=== PATIENT | female | born 1970 ===

== ENCOUNTER 2023-07-15 15:08 | Emergency (ER) | payer OTHER, SELFPAY ==
--- NOTE | ~2023-07-15 | XR_ITS ---
EXAMINATION: XR HIP, RIGHT CLINICAL INFORMATION: Right hip and pelvis pain COMPARISON: None available. TECHNIQUE: Two views of the right hip. FINDINGS: No fracture. Alignment is anatomic. Hip joint space is maintained. Soft tissues are unremarkable. XR/XR hip RT w PEL1V IMPRESSION: Normal right hip.
--- NOTE | ~2023-07-15 | XR_ITS ---
Examination: Lumbar spine, sacrum and coccyx, thoracic spine. Clinical information pain COMPARISON: None TECHNIQUE: 3 views of the sacrococcygeal region, 2 views of thoracic spine, and 3 views of the lumbar spine. FINDINGS: THORACIC SPINE: 2 views of the thoracic spine reveals no evidence of fracture. Osseous structures unremarkable. Soft tissues are normal. LUMBAR SPINE: 3 views of lumbar spine revealed status post L4-L5 effusion with posterior and vertical rods and status post laminectomy. There are no new fractures identified. Vertebral bodies are well aligned. There is almost complete fusion between L4 and L5. There is subchondral sclerosis at the level of L5-S1 and facets. SACRUM AND COCCYX: There is no evidence of fracture seen. Sacroiliac joints are unremarkable. Pelvic bones are normal. XR/XR thoracic spine 3V IMPRESSION: Postsurgical changes at the level of L4-L5 with fusion of L4-L5 and subchondral sclerosis at the level of L5-S1.
--- NOTE | ~2023-07-15 | XR_ITS ---
Examination: Lumbar spine, sacrum and coccyx, thoracic spine. Clinical information pain COMPARISON: None TECHNIQUE: 3 views of the sacrococcygeal region, 2 views of thoracic spine, and 3 views of the lumbar spine. FINDINGS: THORACIC SPINE: 2 views of the thoracic spine reveals no evidence of fracture. Osseous structures unremarkable. Soft tissues are normal. LUMBAR SPINE: 3 views of lumbar spine revealed status post L4-L5 effusion with posterior and vertical rods and status post laminectomy. There are no new fractures identified. Vertebral bodies are well aligned. There is almost complete fusion between L4 and L5. There is subchondral sclerosis at the level of L5-S1 and facets. SACRUM AND COCCYX: There is no evidence of fracture seen. Sacroiliac joints are unremarkable. Pelvic bones are normal. XR/XR sacrum coccyx min 2V IMPRESSION: Postsurgical changes at the level of L4-L5 with fusion of L4-L5 and subchondral sclerosis at the level of L5-S1.
--- NOTE | ~2023-07-15 | XR_ITS ---
Examination: Lumbar spine, sacrum and coccyx, thoracic spine. Clinical information pain COMPARISON: None TECHNIQUE: 3 views of the sacrococcygeal region, 2 views of thoracic spine, and 3 views of the lumbar spine. FINDINGS: THORACIC SPINE: 2 views of the thoracic spine reveals no evidence of fracture. Osseous structures unremarkable. Soft tissues are normal. LUMBAR SPINE: 3 views of lumbar spine revealed status post L4-L5 effusion with posterior and vertical rods and status post laminectomy. There are no new fractures identified. Vertebral bodies are well aligned. There is almost complete fusion between L4 and L5. There is subchondral sclerosis at the level of L5-S1 and facets. SACRUM AND COCCYX: There is no evidence of fracture seen. Sacroiliac joints are unremarkable. Pelvic bones are normal. XR/XR lumbar spine 2-3V IMPRESSION: Postsurgical changes at the level of L4-L5 with fusion of L4-L5 and subchondral sclerosis at the level of L5-S1.
[2023-07-15 15:20] VITALS: BP 104/51; PULSE 67; RESP 18; TEMP 37.2; O2SAT 98; BMI 24.3
--- NOTE | 2023-07-15 15:23 | ED_ITS ---
HPI - General Adult General Chief complaint: Fall Stated complaint: fall / side pain Time Seen by Provider: 07/15/23 17:07 Source: patient Mode of arrival: ambulatory Limitations: no limitations History of Present Illness HPI narrative: 53-year-old female with a history of chronic pain syndrome on chronic opiates, multiple back and neck surgeries in the past who presents to the ER for evaluation of middle and lower back pain, right hip pain after she lost her footing while walking down the stairs and fell on her bottom down 3 steps earlier today. She did not hit her head or lose consciousness. She states she has had pain in the right hip, buttocks and back since then. She is able to walk but it hurts her right hip and back. She states she has been suffering from shooting pains down the right leg for a long time now. She follows with Pain Management in her neurosurgeon. She has had several injections and nerve blocks with no improvement. She is on Dilaudid chronically. She denies any chest pain or shortness of breath. No abdominal pain. No neck pain or headache. MD complaint: Back pain and right hip pain status post fall Onset (ago): hour(s) Location: back and pelvis Radiation: distal Severity: moderate Quality: stabbing and aching Pain Consistency: constant Relieving factors: rest Exacerbating factors: movement Associated symptoms: denies other symptoms Treatments prior to arrival: none Related Data Previous Rx's Medication Instructions Recorded tizanidine 4 mg capsule 4 mg PO Q8H PRN muscle spasticity 07/15/23 #14 caps Allergies Allergy/AdvReac Type Severity Reaction Status Date / Time carbamazepine [From Tegretol] Allergy Severe ANAPHYLAXIS Unverified 07/31/20 15:09 Penicillins Allergy Severe THROAT Unverified 07/31/20 15:09 SWELLING, HIVES trazodone [Trazodone] Allergy Severe HALLUCINATI Unverified 07/31/20 15:09 ONS gabapentin [From Neurontin] Allergy Intermediate WEAKNESS Unverified 07/31/20 15:09 codeine [Codeine] Allergy Mild NAUSEA/VOMI Unverified 07/31/20 15:09 TING dichloralphenazone Allergy Mild HIVES Unverified 07/31/20 15:09 [From MIDRIN] latex [Latex] Allergy Mild RASH Unverified 07/31/20 15:09 topiramate [Topiramate] Allergy Mild HIVES Unverified 07/31/20 15:09 bee pollen [Bee Stings] Allergy Unknown ANAPHYLAXIS Unverified 07/31/20 15:09 divalproex sodium Allergy Unknown UNKNOWN Unverified 07/31/20 15:09 [From DEPAKOTE] etodolac Allergy Unknown HIVES Unverified 07/31/20 15:09 ketorolac [From TORADOL] Allergy Unknown NAUSEA Unverified 07/31/20 15:09 From Dilantin Allergy Intermediate HIVES, RASH Uncoded 07/31/20 15:09 From MIDRIN Allergy Mild HIVES Uncoded 07/31/20 15:09 Review of Systems Review of Systems: Yes all other systems are reviewed and are negative [facility] Social History Social History Advance Directives: No Advance Directives Information Provided: Yes Physical Exam ED Vital Signs: Vital Signs - 24 hr 07/15/23 15:20 07/15/23 17:20 Temperature 99.0 F Pulse Rate 67 61 Respiratory Rate 18 Blood Pressure 104/51 L 126/66 Pulse Oximetry 98 99 Oxygen Delivery Method Room Air Room Air BMI result Body Mass Index 24.3 Appearance: Alert. Oriented X3. No acute distress. Head: normocephalic, atraumatic. Eyes: Pupils equal, round and reactive to light. ENT: Pharynx normal. No tonsillar swelling or exudate. Neck: Normal inspection. Neck supple. CVS: Normal heart rate and rhythm. Pulses normal. Respiratory: No respiratory distress. Breath sounds normal. Abdomen: Soft and nontender. +BS x4 Back: tenderness of the thoracic and lumbar spine throughout with associated soft tissue tenderness of the paraspinous muscles. Skin: Skin warm and dry. Normal skin color. Normal skin turgor. No rashes. Extremities: pelvis is stable. right lateral hip tenderness. no deformity. pain with flexion and full extension of the hip. No lower extremity edema. No joint swelling. Neuro/psych: Oriented X 3. No motor deficit. No sensory deficit. CN II-XII intact. Normal speech and cognition. ambulatory Course Course Course Narrative: This is an RME: Additional HPI, ROS, PE not included below will be deferred to primary provider. This is a 53-year-old female presenting to the emergency department for evaluation of back and right hip pain status post mechanical fall which occurred today. Patient reports that she fell down 3 this afternoon. She has been able to ambulate however reports significant pain. She has a history of back problems reports that she has had multiple surgeries on her back. She currently sees pain management for her back which she gets pain injections for, next appointment is in 2 weeks. Patient has tenderness palpation along the T-spine, L-spine, sacrum and coccyx, and right hip. No LOC, hitting head. Plan: X-rays Medications Administered Discontinued Medications Generic Name Dose Route Start Last Admin Trade Name Freq PRN Reason Stop Dose Admin Hydromorphone HCl 1 mg 07/15/23 18:11 07/15/23 18:24 Hydromorphone Hcl 1 Mg/Ml Syringe IM 07/15/23 18:12 1 mg ONCE ONE Administration Protocol Medical Decision Making Medical Decision Making [facility] Narrative: 53-year-old female presents to the ER for evaluation of back pain and right hip pain after she fell down 3 stairs earlier today. No head strike or loss of consciousness. No headache or neck pain. She had tenderness along her thoracic and lumbar spine so x-rays were performed. No acute compression fractures or spinal fractures were observed. No other signs of trauma on exam. No chest pain or abdominal pain. She is ambulatory. At this time she is stable for discharge home with treatment for contusion, muscle strain and spasm. She is on Dilaudid and gets refills on Tuesday. 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 Differential Diagnosis Differential Diagnoses: The differential diagnosis associated with the presentation includes Compression fracture of the spine, contusion of the back, muscle strain and spasm, hip fracture, coccyx fracture, pelvic fracture Independent Interpretation I performed an independent interpretation of an: Plain X-Ray Interpretation: x-rays reviewed, no acute fracture appreciated, agrees radiologist read Radiology Impression Discussion of test interpretation with radiology: I have reviewed the radiologist's reading. Radiologist Impression: XR/XR hip RT w PEL1V IMPRESSION: Normal right hip. ?XR/XR lumbar spine 2-3V IMPRESSION: Postsurgical changes at the level of L4-L5 with fusion of L4-L5 and subchondral sclerosis at the level of L5-S1. ?XR/XR sacrum coccyx min 2V IMPRESSION: Postsurgical changes at the level of L4-L5 with fusion of L4-L5 and subchondral sclerosis at the level of L5-S1. ?XR/XR sacrum coccyx min 2V IMPRESSION: Postsurgical changes at the level of L4-L5 with fusion of L4-L5 and subchondral sclerosis at the level of L5-S1. Independent Historian Clinical information obtained from an independent historian. History obtained from or confirmed by: Friend External Record Review External record reviewed: Outpatient record Tests considered The following testing was considered but not selected: CT scan of the spine and pelvis was considered Prescription Management I considered prescription management with: Pain Medication Chronic Conditions Patient?s care impacted by: Other (chronic pain) Critical Care Time Critical Care Time Critical Care Time: No Discharge Plan Discharge Clinical Impression: Contusion of back Patient Disposition: Home, Self-Care Instructions: Contusion in Adults (ED) Additional Instructions: Your x-rays showed no broken bones. Your pain is most likely due to muscle strain and spasm along with contusion. No bending, lifting or twisting. Use ice several times per day for 20 minutes at a time for the next 48 hours and then change to heat. Take medication as prescribed to help with pain and discomfort. Follow up with your Primary Care Doctor, Pain Management provider and Neurosurgeon. Prescriptions: New tizanidine 4 mg capsule 4 mg PO Q8H PRN (Reason: muscle spasticity) Qty: 14 0RF
[2023-07-15 17:20] VITALS: BP 126/66; PULSE 61; O2SAT 99
[2023-07-15] MEDS: HYDROmorphone HCl 1 MG/ML SYRINGE IM (18:24)
== END 2023-07-15 18:53 | disposition home or self-care (01) ==
PROVIDERS: Emergency Provider Emergency Medicine
DX: S39.012A Strain of muscle, fascia and tendon of lower back, initial encounter (principal); M54.2 Cervicalgia; R51.9 Headache, unspecified; M25.551 Pain in right hip; R10.2 Pelvic and perineal pain; M54.6 Pain in thoracic spine; M53.3 Sacrococcygeal disorders, not elsewhere classified; W01.10XA Fall on same level from slipping, tripping and stumbling with subsequent striking against unspecified object, initial encounter; Y93.9 Activity, unspecified; Y92.9 Unspecified place or not applicable; Y99.9 Unspecified external cause status; Z79.899 Other long term (current) drug therapy
CPT/HCPCS: 72072; 72100; 72220; 73502; 96372; 99283; 99284; J1170

== ENCOUNTER 2023-08-06 15:10 | Emergency (ER) | payer OTHER, SELFPAY ==
--- NOTE | ~2023-08-06 | CT_ITS ---
EXAMINATION: CT HEAD WITHOUT CONTRAST CLINICAL INFORMATION: Sudden onset headache. History of previously treated arteriovenous malformation. COMPARISON: CTA head and neck from 04/25/2015. TECHNIQUE: Contiguous axial imaging was performed from the skull base to vertex without intravenous administration of contrast. This CT examination was performed using dose optimization techniques as appropriate, variously including the following: *Automated exposure control. *Adjustment of mA and/or kV according to patient size (this includes techniques or standardized protocols for targeted exams where dose is matched to indication/reason for exam; i.e. extremities or head). *Use of iterative reconstruction technique. DLP: 2020 mGy-cm FINDINGS: Right frontal approach ventriculoperitoneal shunt catheter in place. The tip the remaining in the anterior aspect of the third ventricle. The ventricles are moderately expanded compared to exam from 2015. The third ventricle now measures up to 1.1 cm in diameter (previously 0.5 cm). The septum pellucidum is chronically positioned approximately 0.4 cm to the right of midline. Mild white matter hypoattenuation surrounding the catheter in the anterior right frontal lobe. Changes of prior left pterional craniotomy. Surgical aneurysm clip in the suprasellar cistern. Coil embolization material is noted along the M1 segment of the left MCA at the site of previously demonstrated aneurysm. Radiodense embolization material is noted in multiple irregular vessels along the lateral left frontal lobe at the site of previously demonstrated arterial venous malformation. There is no demonstrated evidence of acute intracranial hemorrhage or edematous territorial infarction. No new loss of hillman-white matter differentiation. No additional parenchymal attenuation abnormalities. No demonstrated extra-axial fluid collection. No acute soft tissue or osseous abnormalities. Chronic gale hole in the posterior aspect of the right parietal bone. The mastoid air cells and visualized paranasal sinuses are clear. CT/CT head/brain wo IV con IMPRESSION: 1. No evidence of acute intracranial hemorrhage or edematous territorial infarction. 2. Right frontal approach ventriculoperitoneal shunt catheter in place. The ventricles are moderately expanded compared to exam from 2015. 3. Changes of prior left pterional craniotomy and coil embolization of a left MCA aneurysm.
[2023-08-06 15:23] VITALS: BP 111/53; BP 132/68; PULSE 64; PULSE 71; TEMP 36.9; O2SAT 98; BMI 29.0
--- NOTE | 2023-08-06 16:24 | PC.NURSE ---
pt reports 10/10 headache that began 30 mins prior to arriving to the er. she states that she has chronic migraines and takes meds for it. she also has hx of seizure, last seizure was a month ago. pt compliant with meds. a+o, vss. denies blurry vision, dizziness, numbness, tingling. no other complaints.
[2023-08-06 16:32] LABS: MANUAL DIFF FLAG NO
[2023-08-06 16:33] LABS: Basophils Percent Auto 0.5 % (0-2); Eosinophils Absolute Auto 0.1 X10*3/uL (0.0-0.4); Eosinophils Percent Auto 1.9 % (0-4); Hematocrit 37.3 % (37.0-47.0); Hemoglobin 12.3 g/dl (12.0-16.0); Imm Gran Abs Auto 0.06 X10*3/uL (0.00-0.03); Lymphocytes Absolute Auto 2.2 X10*3/uL (1.2-4.9); Lymphocytes Percent Auto 34.7 % (20-40); Mean Corpuscular Hemoglobin 28.9 pg (27.0-33.0); Mean Corpuscular Volume 87.6 fL (80.0-98.0); Mean Platelet Volume 8.1 fL (9.4-12.3); Monocytes Absolute Auto 0.5 X10*3/uL (0.1-1.2); Monocytes Percent Auto 8.6 % (2-11); Neutrophils Absolute Auto 3.3 x10*3/uL (2.0-8.3); Neutrophils Percent Auto 53.3 % (45-73); Platelet Count 192 X10*3/uL (160-400); Red Blood Count 4.26 X10*6/uL (4.20-5.50); Red Cell Distribution Width 12.6 % (11.0-16.0); White Blood Count 6.3 X10*3/uL (4.8-10.8)
[2023-08-06 16:48] LABS: COVID-19 Test Negative (Negative); IDNOW Serial# 08D9AD1C
[2023-08-06 16:54] LABS: Alanine Aminotransferase 9 U/L (0-31); Albumin Level 4.2 g/dL (3.5-5.0); Alkaline Phosphatase 111 U/L (39-117); Anion Gap 13 (12-20); Aspartate Amino Transferase 11 U/L (5-31); Bilirubin Total 0.2 mg/dL (0.0-1.0); Blood Urea Nitrogen 23 mg/dL (9-16); Calcium 9.3 mg/dL (8.4-10.2); Carbon Dioxide 19 mmol/L (22-29); Chloride 116 mmol/L (96-108); Creatinine Clr Calc Pharmacy 63.7; Estimated Glomerular Filt Rate 49; Glucose Random 80 mg/dL (60-115); Potassium 3.9 mmol/L (3.3-5.1); Sodium 144 mmol/L (135-145); Total Protein 7.5 g/dL (6.5-8.0)
[2023-08-06 17:05] LABS: Appearance Urine Clear; Color Urine Yellow; Glucose Urine UA Negative (Negative); Leukocyte Esterase Urine Trace (Negative); Nitrite Urine Negative (Negative); UMIC TRIGGER UACC YES; Urine Blood Negative (Negative); Urine Ketones Negative (Negative); Urine Protein Negative (Neg-Trace)
[2023-08-06 17:10] LABS: Bacteria Urine None Seen (None Seen); Hyaline Casts Urine 0-2 /LPF (0-2); RBC Urine 0-2 /HPF (0-2); Squamous Epithelial Cell Urine 0-2 /HPF (0-2); WBC Urine 0-5 /HPF (0-5)
--- NOTE | 2023-08-06 18:47 | ED.GENADULT ---
HPI - General Adult General Chief complaint: Headache Stated complaint: hist of seizure, headache, per ems Time Seen by Provider: 08/06/23 18:04 Source: patient, RN notes reviewed and old records reviewed Mode of arrival: ambulatory Limitations: no limitations History of Present Illness HPI narrative: 53-year-old female presents for evaluation of a headache. Patient reports that she suffers from frequent headaches. She has a history of cerebral aneurysm requiring coiling in 2004, AVM She reports that she developed a severe frontal headache that radiates around both sides of her head about 30 minutes prior to arrival She reports that 3 days ago she received ?anesthetic injections for a nerve block and my neck to try and prevent headaches. ? Though the patient has frequent headaches she states that this headache came on more suddenly than her usual headaches Denies any visual changes, dizziness, weakness Related Data Previous Rx's Medication Instructions Recorded tizanidine 4 mg capsule 4 mg PO Q8H PRN muscle spasticity 07/15/23 #14 caps Allergies Allergy/AdvReac Type Severity Reaction Status Date / Time carbamazepine [From Tegretol] Allergy Severe ANAPHYLAXIS Verified 08/06/23 15:34 Penicillins Allergy Severe THROAT Verified 08/06/23 15:34 SWELLING, HIVES trazodone [Trazodone] Allergy Severe HALLUCINATI Verified 08/06/23 15:34 ONS gabapentin [From Neurontin] Allergy Intermediate WEAKNESS Verified 08/06/23 15:34 codeine [Codeine] Allergy Mild NAUSEA/VOMI Verified 08/06/23 15:34 TING dichloralphenazone Allergy Mild HIVES Verified 08/06/23 15:34 [From MIDRIN] latex [Latex] Allergy Mild RASH Verified 08/06/23 15:34 topiramate [Topiramate] Allergy Mild HIVES Verified 08/06/23 15:34 bee pollen [Bee Stings] Allergy Unknown ANAPHYLAXIS Verified 08/06/23 15:34 divalproex sodium Allergy Unknown UNKNOWN Verified 08/06/23 15:34 [From DEPAKOTE] etodolac Allergy Unknown HIVES Verified 08/06/23 15:34 ketorolac [From TORADOL] Allergy Unknown NAUSEA Verified 08/06/23 15:34 From Dilantin Allergy Intermediate HIVES, RASH Uncoded 07/31/20 15:09 From MIDRIN Allergy Mild HIVES Uncoded 07/31/20 15:09 Review of Systems Constitutional: Constitutional: Denies chills, Denies fever(s) and Reports headache(s) Eyes: Eyes: Denies blurry vision and Denies exophthalmos ENT: Reports headache(s) Cardiovascular: Cardiovascular: Denies chest pain and Denies dyspnea Respiratory: Respiratory: Denies dyspnea Gastrointestinal: Gastrointestinal: Denies abdominal pain, Denies nausea and Denies vomiting Musculoskeletal: Musculoskeletal: Denies back pain Neurologic: Reports headache(s) PMFSH Social History Social History Advance Directives: No Advance Directives Information Provided: No Patient : No Physical Exam ED Vital Signs: Vital Signs - 24 hr 08/06/23 15:23 08/06/23 19:58 Temperature 98.5 F 98.3 F Pulse Rate 64 63 Respiratory Rate 18 Blood Pressure 111/53 L 115/64 Pulse Oximetry 98 98 Oxygen Delivery Method Room Air Room Air BMI result Body Mass Index 29.0 Const General: healthy appearing, comfortable, no acute distress, alert and awake Nutritional Appearance: well nourished Orientation/consciousness: patient oriented x3 HENMT Head: Yes normocephalic and Yes atraumatic Eyes Eyelids: Yes eyelids normal Conjunctivae: conjunctivae normal Sclerae: sclerae normal Corneas: corneas normal Pupils: Equal, round and reactive pupils present EOM: EOMs intact bilaterally Neck Neck: Yes full ROM Resp Effort & Inspection: normal respiratory effort, able to speak in complete sentences and not labored Cardio Rate: regular rate Rhythm: regular rhythm GI Inspection: No distended Palpation (GI): Soft to palpation, not firm, nontender, no guarding and not rigid Auscultation: normoactive bowel sounds Skin General skin exam: elasticity normal Neuro General: patient oriented x3 Cranial nerves: Yes CN's II-XII intact bilaterally, Yes Equal, round and reactive pupils present and Yes Bilaterally intact EOM present Cognition (Neuro): normal cognition Extrem Other: Moving all extremities well without any obvious deformities Course Reevaluation(s) Reevaluation #1: Patient's symptoms have resolved, she is to the for discharge at this time Time: 20:43 Medications Administered Discontinued Medications Generic Name Dose Route Start Last Admin Trade Name Freq PRN Reason Stop Dose Admin Diphenhydramine HCl 25 mg 08/06/23 18:14 08/06/23 19:40 Diphenhydramine Hcl 50 Mg/Ml Vial IVPUSH 08/06/23 18:15 25 mg ONCE ONE Administration Sodium Chloride 1,000 mls @ 999 mls/hr 08/06/23 18:15 08/06/23 19:40 Ns IV 08/06/23 19:15 999 mls/hr .Q1H1M JACQUE Administration Metoclopramide HCl 10 mg 08/06/23 18:14 08/06/23 19:40 Metoclopramide Hcl 10 Mg/2 Ml Vial IVPUSH 08/06/23 18:15 10 mg ONCE ONE Administration Morphine Sulfate 4 mg 08/06/23 18:14 08/06/23 19:40 Morphine Sulfate 4 Mg/Ml Cartridge IVPUSH 08/06/23 18:15 4 mg ONCE ONE Administration Protocol Medical Decision Making Medical Decision Making MDM Narrative: 53-year-old female presents for evaluation of headache. She does have a history of chronic headaches and migraines. She has no neuro deficits. She does state this headache is different from previous headaches due to acute onset. Given this with a CT scan to rule out intracranial hemorrhage. She presented within 6 hours of her symptom onset. Will treat her pain the meantime with fluids, Reglan, Benadryl, morphine as she has an allergy to Toradol Differential Diagnosis Differential Diagnoses: The differential diagnosis associated with the presentation includes Complex migraine Intracranial hemorrhage Intracranial mass Cluster headache Tension headache Lab Data MDM Lab Attestation statement: I reviewed the patient's lab results. No leukocytosis, no significant anemia, normal platelet count. Normal sodium, normal potassium. Chloride is slightly elevated to 116 with a CO2 that is 19, little bit below normal. This is likely related to hyperventilation due to her pain. BUN is just above normal at 23 the creatinine is normal at 1.15. 08/06/23 16:27 08/06/23 16:27 Labs: Lab Results 08/06/23 08/06/23 Range/Units 16:27 16:57 WBC 6.3 (4.8-10.8) X10*3/uL RBC 4.26 (4.20-5.50) X10*6/uL Hgb 12.3 (12.0-16.0) g/dl Hct 37.3 (37.0-47.0) % MCV 87.6 (80.0-98.0) fL MCH 28.9 (27.0-33.0) pg MCHC 33.0 (31.0-35.0) g/dl RDW 12.6 (11.0-16.0) % Plt Count 192 (160-400) X10*3/uL MPV 8.1 L (9.4-12.3) fL Immature Gran % (Auto) 1.0 H (0.0-0.4) % Neut % (Auto) 53.3 (45-73) % Lymph % (Auto) 34.7 (20-40) % [place] % (Auto) 8.6 (2-11) % Eos % (Auto) 1.9 (0-4) % Baso % (Auto) 0.5 (0-2) % Lymph # (Auto) 2.2 (1.2-4.9) X10*3/uL [place] # (Auto) 0.5 (0.1-1.2) X10*3/uL Eos # (Auto) 0.1 (0.0-0.4) X10*3/uL Baso # (Auto) 0.0 (0.0-0.2) X10*3/uL Abs Immat Gran (auto) 0.06 H (0.00-0.03) X10*3/uL Absolute Neuts (auto) 3.3 (2.0-8.3) x10*3/uL Absolute Nucleated RBC 0.000 (0.0-0.012) X10*3/uL Nucleated RBC % (auto) 0.0 (0.0-0.2) /100WBC Sodium 144 (135-145) mmol/L Potassium 3.9 (3.3-5.1) mmol/L Chloride 116 H (96-108) mmol/L Carbon Dioxide 19 L (22-29) mmol/L Anion Gap 13 (12-20) BUN 23 H (9-16) mg/dL Creatinine 1.15 (0.5-1.4) mg/dL Estim Creat Clear Calc 63.7 Estimated GFR 49 Random Glucose 80 (60-115) mg/dL Calcium 9.3 (8.4-10.2) mg/dL Total Bilirubin 0.2 (0.0-1.0) mg/dL AST 11 (5-31) U/L ALT 9 (0-31) U/L Alkaline Phosphatase 111 (39-117) U/L Total Protein 7.5 (6.5-8.0) g/dL Albumin 4.2 (3.5-5.0) g/dL Urine Color Yellow Urine Appearance Clear Urine pH 7.0 (5.0-9.0) Ur Specific [place] 1.010 (1.005-1.025) Urine Protein Negative (Neg-Trace) mg/dL Urine Glucose (UA) Negative (Negative) mg/dL Urine Ketones Negative (Negative) mg/dL Urine Blood Negative (Negative) Urine Nitrite Negative (Negative) Ur Leukocyte Esterase Trace H (Negative) Urine RBC 0-2 (0-2) /HPF Urine WBC 0-5 (0-5) /HPF Ur Squamous Epith Cells 0-2 (0-2) /HPF Urine Bacteria None Seen (None Seen) Hyaline Casts 0-2 (0-2) /LPF COVID-19 (DEJA) Negative (Negative) COVID-19 Clin Com See Note Discharge Plan Discharge Clinical Impression: Headache Patient Disposition: Home, Self-Care Instructions: Acute Headache (ED) Additional Instructions: Take all of your medications as prescribed Your workup in the emergency department today was reassuring. Follow-up with your primary doctor and your neurologist Prescriptions: No Action tizanidine 4 mg capsule 4 mg PO Q8H PRN (Reason: muscle spasticity) Qty: 14 0RF
[2023-08-06] MEDS: Metoclopramide HCl 10 MG/2 ML VIAL IVPUSH (19:40)
[2023-08-06] MEDS: 0.9 % Sodium Chloride 1,000 ML 999 ML IV (19:40)
[2023-08-06] MEDS: Morphine Sulfate 4 MG/ML CARTRIDGE IVPUSH (19:40)
[2023-08-06] MEDS: diphenhydrAMINE HCL 50 MG/ML VIAL 25 MG IVPUSH (19:40)
[2023-08-06 19:58] VITALS: BP 115/64; PULSE 63; RESP 18; TEMP 36.8; O2SAT 98
--- NOTE | 2023-08-06 20:17 | PC.NURSE ---
Assumed care of patient at 1900. Patient is alert and oriented x4 in no acute distress. VSS. Pt reporting 9/10 pain at this time. IV access placed in left ac. Line is intact and patent. Iv fluids running, medications administered as per JAN. Call baez within reach. Plan of care ongoing
== END 2023-08-06 21:39 | disposition home or self-care (01) ==
PROVIDERS: Emergency Provider Internal Medicine
DX: R51.9 Headache, unspecified (principal); Z20.822 Contact with and (suspected) exposure to COVID-19
CPT/HCPCS: 70450; 80053; 81001; 85025; 87635; 96374; 96375; 99284; J1200; J2270; J2765